=== PATIENT | female | born 2000 | race African-American/Black ===

== ENCOUNTER 2020-01-27 07:54 | Emergency (ER) | payer OTHER, MEDICAID, SELFPAY ==
--- NOTE | ~2020-01-27 | XR_ITS ---
XR wrist LT min 3V 01/27/2020 08:34 INDICATION: Left wrist pain PROCEDURE: 4 views left wrist COMPARISON: No prior studies for comparison. FINDINGS: Fracture, dislocation or subluxation is not identified. The soft tissues appear within norm al limits. No foreign bodies are identified. IMPRESSION: 1: NO ACUTE BONE OR JOINT ABNORMALITY IDENTIFIED. Reviewed, dictated and finalized at location B. ICAL/MOBILE WATCH OFFICER
[2020-01-27 07:54] VITALS: BP 123/75; PULSE 70; RESP 16; TEMP 37.1; O2SAT 100
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
[2020-01-27] MEDS: IBUPROFEN 600 MG TABLET PO (08:50)
[2020-01-27 09:55] VITALS: BP 130/70; PULSE 70; RESP 16; O2SAT 99
== END 2020-01-27 09:55 | disposition home or self-care (01) ==
PROVIDERS: Emergency Provider Emergency Medicine; Referring Provider Family Medicine
DX: S60.212A Contusion of left wrist, initial encounter (principal); V43.52XA Car driver injured in collision with other type car in traffic accident, initial encounter
CPT/HCPCS: 73110; 99283; A9270

== ENCOUNTER 2024-03-17 14:54 | Outpatient (CLI) | payer OTHER, SELFPAY ==
--- NOTE | ~2024-03-17 | US_ITS ---
EXAMINATION: US pelvic complete w TV DATE: 03/17/2024 15:43 INDICATION: Excessive and frequent menstruation. Pelvic pain. Heavy bleeding. Comparison:No prior studies for comparison. TECHNIQUE: Multiple transabdominal and endovaginal sonographic images of the pelvis performed. FINDINGS: The uterus measures 8.4 x 3.9 x 5 cm. The endometrial complex measures 2 cm. Endometrium is thickened and heterogeneous The right ovary measures 3.8 x 2.3 x 3.6 cm and the left ovary measures 3.3 x 2.4 x 2.9 cm. There ar e small follicles in each ovary. Normal doppler signal in both ovaries. There is free fluid in the pelvis. There are no abnormal masses seen on either side. IMPRESSION: 1. Thickened endometrium measuring 2 cm. Reviewed, dictated and finalized at location B.
== END 2024-03-17 14:55 ==
DX: N92.0 Excessive and frequent menstruation with regular cycle (principal); R93.89 Abnormal findings on diagnostic imaging of other specified body structures
CPT/HCPCS: 76830; 76856

== ENCOUNTER 2024-03-29 10:30 | Emergency (ER) | payer OTHER, SELFPAY ==
--- NOTE | ~2024-03-29 | CT_ITS ---
EXAMINATION: CT abdomen pelvis w con DATE: 03/29/2024 12:36 INDICATION: Generalized abdominal pain. TECHNIQUE: Computed tomography (CT) of the abdomen and pelvis was performed with 100 mL Omnipaque 350 intravenous contrast. Automated exposure control and iterative reconstruction technique were employe d. The dose-length product was 415.39 mGy-cm. COMPARISON: None. FINDINGS: The visualized portions of the lung bases are clear without pneumonia or pleural effusion. The heart size is normal. No pericardial effusion. There is a 6 mm cyst in the liver. There is a gall stone in the gallbladder which is normal in size. The spleen, pancreas, adrenal glands, and kidneys a re normal. The appendix is normal. There is wall thickening of the splenic flexure of the colon. Ther e are no dilated loops of bowel. There is physiologic fluid in the pelvis. There are no pathologicall y enlarged lymph nodes. There is mild lumbar spondylosis. IMPRESSION: 1. Wall thickening of the splenic flexure of the colon, consistent with colitis. Reviewed, dictated and finalized at location A. IMPRESSION: 1. Wall thickening of the splenic flexure of the colon, consistent with colitis .
[2024-03-29 10:39] VITALS: BP 109/61; PULSE 80; RESP 29; TEMP 36.8; O2SAT 100
--- NOTE | 2024-03-29 10:43 | ED.GENADULT ---
HPI - General Adult General Chief complaint: Nausea/Vomiting/Diarrhea Stated complaint: n/v Time Seen by Provider: 03/29/24 10:34 History of Present Illness HPI narrative: 23-year-old female presenting to the emergency department for evaluation of nausea vomiting and diarrhea. Patient had similar symptoms yesterday and was seen at [facility]. Patient was treated with IV fluids and medications for nausea control and did feel improved. Patient was discharged home with Zofran but had onset of nausea and vomiting and states she was unable to go to the pharmacy to fill her prescription. Patient did presents to the emergency department complaining of worsening nausea and vomiting. Patient complains of diffuse abdominal pain. Patient denies any significant past medical history. Related Data Allergies Allergy/AdvReac Type Severity Reaction Status Date / Time No Known Allergies Allergy Verified 03/29/24 10:42 Review of Systems Review of Systems: All systems reviewed & are unremarkable except as noted in HPI and below Exam Narrative: APPEARANCE: Well appearing, no pain, no distress, well-nourished. HEAD: normocephalic, atraumatic. EYES: PERRLA/EOMI, conjunctivae clear. NOSE: Normal no drainage EARS:TMS clear with good light reflex. THROAT: Pharynx clear, no exudate. NECK: Supple. No adenopathy, no masses. RESPIRATORY: Airway patent, respirations nonlabored. Clear to auscultation bilaterally, no rales, rhonchi, wheezing. CARDIOVASCULAR: Regular rate and rhythm without murmurs rubs or gallops. ABDOMINAL: Nondistended, normal bowel sounds, diffuse abdominal tenderness MUSCULOSKELETAL: Moves all extremities. Strength/ROM intact, No edema, No calf tenderness. NEURO: Alert. Cranial nerves II through XII intact. Grossly intact Course Vital Signs Vital signs: Vital Signs Temperature 98.2 F 03/29/24 10:39 Pulse Rate 80 03/29/24 10:39 Respiratory Rate 29 H 03/29/24 10:39 Blood Pressure 109/61 03/29/24 10:39 Pulse Oximetry 100 03/29/24 10:39 Oxygen Delivery Room Air 03/29/24 10:39 Temperature 98.2 F 03/29/24 10:39 Pulse Rate 63 03/29/24 12:52 Respiratory Rate 12 03/29/24 12:52 Blood Pressure 129/70 03/29/24 12:52 Pulse Oximetry 100 05/05/24 12:52 Oxygen Delivery Room Air 03/29/24 10:39 Medical Decision Making MDM Narrative Medical decision making narrative: 23 old female presenting to the emergency department for evaluation of recurrent nausea vomiting and diffuse abdominal pain. Patient was treated with IV fluids and IV anti emetics but still complains of persistent abdominal pain. Patient is afebrile but does have a leukocytosis of 16.5. Patient was mildly hypokalemic with a potassium of 3.1. Patient did have elevated lactic acid of 2.7. Patient was treated with 2 L of normal saline. Urine showed ketones but no other significant underlying evidence of infection. On re-evaluation patient does still complain of diffuse abdominal pain. With leukocytosis and elevated lactic acid a CT scan is being ordered to evaluate for colitis and appendicitis. Patient's CT was positive for colitis. Patient does have a prescription for Zofran at home that she has not yet filled. Patient will be prescribed additional Reglan and patient will also be started on Augmentin. Patient was encouraged to have close follow-up with her primary care physician. Differential Diagnosis Differential Diagnosis: Colitis, diverticulitis, gastroenteritis, dehydration, UTI Vital Signs Vital Signs: Vital Signs Temperature 98.2 F 03/29/24 10:39 Pulse Rate 80 03/29/24 10:39 Respiratory Rate 29 H 03/29/24 10:39 Blood Pressure 109/61 03/29/24 10:39 Pulse Oximetry 100 03/29/24 10:39 Oxygen Delivery Room Air 03/29/24 10:39 Temperature 98.2 F 03/29/24 10:39 Pulse Rate 63 03/29/24 12:52 Respiratory Rate 12 03/29/24 12:52 Blood Pressure 129/70 03/29/24 12:52 Pulse Oximetr
[2024-03-29] MEDS: METOCLOPRAMIDE HCL INJ 10 MG/2 ML VIAL IV PUSH (10:52)
[2024-03-29] MEDS: SODIUM CHLORIDE 0.9% IV 1,000 ML 999 ML IV CONT ×2 (10:52→11:20)
[2024-03-29 11:02] LABS: Basophils Absolute Auto 0.1 K/mm3 (0.0-0.1); Basophils Percent Auto 0.3 % (0.2-1.2); Eosinophils Percent Auto 0.1 % (0-4.4); Hematocrit 39.2 % (37.0-47.0); Hemoglobin 13.4 g/dL (12.0-15.0); Immature Granulocyte Percent A 0.6 % (0-0.5); Lymphocytes Absolute Auto 2.33 K/mm3 (0.9-3.2); Lymphocytes Percent Auto 14.1 % (18.3-44.2); Mean Corpuscular HGB Conc 34.2 g/dl (32-36); Mean Corpuscular Hemoglobin 29.8 pg (26-34); Mean Corpuscular Volume 87.1 fl (80-100); Mean Platelet Volume 10.8 fl (7.4-10.4); Neutrophils Percent Auto 78.9 % (45.5-73.1); Platelet Count Result 344 k/mm3 (150-375); Red Cell Distribution Width 13.7 % (11.5-14.5); White Blood Count 16.5 K/mm3 (4.5-10.0)
[2024-03-29 11:12] LABS: Lactic Acid Reflex 2.7 mmol/L (0.7-2.0)
[2024-03-29 11:14] LABS: Alanine Aminotransferase 24 U/L (6-35); Albumin Level 4.6 g/dL (3.5-5.1); Alkaline Phosphatase 78 U/L (38-126); Anion Gap 9 mmol/L (4-12); Aspartate Amino Transferase 37 U/L (14-36); Bilirubin,Total 0.5 mg/dL (0.2-1.3); Blood Urea Nitrogen 10 mg/dL (7-17); Calcium 9.3 mg/dL (8.4-10.2); Carbon Dioxide 21 mmol/L (22-30); Chloride 109 mmol/L (98-107); Estimated CRCL calculation 70 ml/min; Estimated Glomerular Filt Rate > 60; Glucose 105 mg/dL (65-110); Lipase 187 U/L (23-300); Potassium 3.1 mmol/L (3.4-5.0); Sodium 139 mmol/L (137-145)
[2024-03-29 11:31] VITALS: BP 119/73; PULSE 56
[2024-03-29 11:32] VITALS: BP 124/81; PULSE 56
[2024-03-29 11:33] VITALS: BP 127/78; PULSE 78
[2024-03-29 11:49] LABS: Appearance Urine Cloudy (Clear); Bacteria Urine Rare /hpf; Bilirubin Urine Negative (Negative); Blood Urine Negative (Negative); Color Urine Yellow (Yellow); Glucose Urine UA Negative (Negative); Ketones Urine 3+ mg/dL (Negative); Leukocyte Esterase Ur Trace LEU/UL (Negative); Nitrate Urine Negative (Negative); Non Pathogenic Casts 0-2; Protein Urine 1+ mg/dL (Negative); RBC Urine 0-2 /hpf (0-2); Squamous Epithelial Cell Urine Moderate /hpf (Few)
[2024-03-29] MEDS: POTASSIUM CHLORIDE 20 MEQ ER TABLET 40 MEQ PO (11:49)
[2024-03-29 11:52] LABS: Add Urine Microscopic? YES; Specific Grav Ur 1.035 (1.001-1.035)
--- NOTE | 2024-03-29 12:17 | PC.NURSE ---
Pt to CT scan via stretcher at this time.
[2024-03-29 12:52] VITALS: BP 129/70; PULSE 63; RESP 12; O2SAT 100
[2024-03-29 13:59] LABS: Reflex Lactic Acid Yes or No Add Lactic
== END 2024-03-29 13:37 | disposition home or self-care (01) ==
PROVIDERS: Physician Assistant; Emergency Provider Emergency Medicine
DX: K52.9 Noninfective gastroenteritis and colitis, unspecified (principal)
CPT/HCPCS: 36415; 74177; 80053; 81001; 81025; 83605; 83690; 85025; 87086; 96361; 96374; 99284; A9270; J2765; J7030; Q9967

== ENCOUNTER 2024-05-19 07:00 | Outpatient (NON) | payer OTHER, SELFPAY | END 2024-05-19 07:01 | disposition home or self-care (01) | LOC: ANHLAB 05-20 08:39 | PROVIDERS: PCP Midwife; Visit Provider Internal Medicine Gastroenterology | DX: K58.2 Mixed irritable bowel syndrome (principal); K63.5 Polyp of colon | CPT/HCPCS: 88305 ==

== ENCOUNTER 2024-05-19 09:06 | Day surgery (SDC) | payer OTHER, SELFPAY ==
[2024-05-06 09:31] VITALS: BMI 29.5
[2024-05-08 13:29] VITALS: BMI 28.7
--- NOTE | 2024-05-18 07:32 | P.PNAN_ITS ---
Anes - Initial Pre Proc Eval Procedure: Operation Date: 05/19/24 11:30 Proposed Procedures p Esophagogastroduodenoscopy - Jose Clemens MD s Diagnostic Colonoscopy - Jose Clemens MD Date/Time: 05/18/24 07:32 Surgeon: Jose Clemens MD Pre Op Diagnosis: Noninfective gastroenteritis & colitis,unspecified Patient Data Age: 23 Gender: F Height: 1.55 m Weight: 69 kg Allergies Allergy/AdvReac Type Severity Reaction Status Date / Time No Known Allergies Allergy Verified 05/19/24 10:25 Home Medications Medication Instructions Recorded Confirmed Type No Home Medications 05/08/24 05/19/24 History Patient hx anesthesia problems: none Family hx anesthesia problems: none Results Review: All pre-operative results and documents have been reviewed as part of the pre-operative evaluation. [facility] Social History Social History Smoking status: Never smoker Substance use: former Substance use type: marijuana Living arrangements: with family Spiritual care concerns: No Anes - Eval Final PreProcedure Day of Procedure 05/18/24 07:32 Patient weight: overweight Heart: regular rate and rhythm Lungs: clear to auscultation Airway: Mallampati scale class II Neurological: alert and oriented Last oral intake: >/= 8 hours ASA classification: II Emergent: no Anesthetic plan: proceed Anesthesia type and monitoring: general GIVS and standard monitoring Results Review: All pre-operative results and documents have been reviewed as part of the pre- operative evaluation. Informed Consent: The patient's anesthetic plan and its attendant risks and benefits were discussed with the patient/family/POA. Questions were solicited and answers provided to the satisfaction of the patient/family/POA.
--- NOTE | 2024-05-18 20:19 | PM.HPGS ---
History of Present Illness History of Present Illness Consent: Risks, benefits, and alternatives have been discussed and questions answered. Patient agrees to proceed with procedure. Chief complaint: Noninfective gastroenteritis & colitis,unspecified Narrative: Alanis Leon is a 23 year old female who was seen at [facility] ER 03/29/2024 for acute diarrhea, worsening abdominal pain and nausea and vomiting. She is found have an elevated white blood cell count of [address] noted colitis at the splenic flexure. She was discharged with Augmentin. Her acute symptoms have resolved. However, she also complains of chronic GI symptoms since the of her daughter 6 years ago. She does complain chronic upper abdominal pain that comes and goes. She will mostly notice it in the a.m. prior to eating and eating does not improve symptoms. She does state it will radiate into her olive Review of Systems Review of Systems: All systems reviewed & are unremarkable except as noted in HPI and below PMFSH Social History Social History Smoking status: Never smoker Substance use: former Substance use type: marijuana Living arrangements: with family Spiritual care concerns: No Meds Home Medications and Allergies Home Medications Medication Instructions Recorded Confirmed Type No Home Medications 05/08/24 05/19/24 History Allergies Allergy/AdvReac Type Severity Reaction Status Date / Time No Known Allergies Allergy Verified 05/19/24 10:25 Exam Const: General: alert Orientation/consciousness: patient oriented x3 Resp: Auscultation: clear to auscultation bilaterally Cardio: Rhythm: regular rhythm GI: GI Palp: Yes Soft to palpation and No Tenderness to palpation present (GI) Neuro: General: patient oriented x3 Assessment and Plan Assessment and plan (1) Colitis: Code(s): K52.9 - Noninfective gastroenteritis and colitis, unspecified Status: Inactive Assessment and Plan: Colonoscopy with possible biopsy or polypectomy or cautery or injection of substances. (2) Upper abdominal pain: Code(s): R10.10 - Upper abdominal pain, unspecified Status: Acute Assessment and Plan: EGD with possible biopsy or dilatation or cautery.
[2024-05-19 10:30] VITALS: BP 128/68; PULSE 71; RESP 16; TEMP 36.5; O2SAT 100
[2024-05-19] MEDS: LACTATED RINGERS 1,000 ML 150 ML IV CONT (10:35)
[2024-05-19 11:28] VITALS: BP 93/59; PULSE 75; RESP 15; O2SAT 100
[2024-05-19 11:38] VITALS: BP 113/62; PULSE 75; RESP 15; O2SAT 100
[2024-05-19 11:48] VITALS: BP 99/72; PULSE 69; RESP 14; O2SAT 100
--- NOTE | 2024-05-19 13:43 | WPDANESPN ---
Anes - Prog Note Post-Op Date/Time: 05/19/24 13:43 Cardiovascular status: normal Respiratory status: normal Airway patency: baseline Mental status: baseline Post-Op hydration status: normal Vital Signs: Last Vital Signs Temp 36.5 C 05/19/24 10:30 Pulse 69 05/19/24 11:48 Resp 14 05/19/24 11:48 BP 99/72 L 05/19/24 11:48 Pulse Ox 100 05/19/24 11:48 O2 Del Method Room Air 05/19/24 11:48 Pain Score (VAS): 0 I/O: Intake & Output 05/18/24 05/19/24 05/19/24 23:59 07:59 15:59 Intake Total 500 Balance 500 Post-procedural complaints: none Patient Feedback: Patient satisfied with anesthetic care. Other Findings: Patient vital signs back to baseline. Patient denies nausea and vomiting. Patient's pain under control. Patient OK for discharge.
== END 2024-05-19 12:11 | disposition home or self-care (01) ==
PROVIDERS: PCP Midwife; Visit Provider Internal Medicine Gastroenterology
PROC: 0DJ08ZZ Inspection of Upper Intestinal Tract, Via Natural or Artificial Opening Endoscopic (ICD-10-PCS; CPT 43235; principal; 2024-05-19 11:30)
PROC: 0DJD8ZZ Inspection of Lower Intestinal Tract, Via Natural or Artificial Opening Endoscopic (ICD-10-PCS; CPT 45378; 2024-05-19 11:30)
DX: R93.3 Abnormal findings on diagnostic imaging of other parts of digestive tract (principal); D12.4 Benign neoplasm of descending colon; R10.84 Generalized abdominal pain
CPT/HCPCS: 45380; 43239

== ENCOUNTER 2024-07-13 18:55 | Emergency (ER) | payer OTHER, SELFPAY ==
[2024-07-13 19:01] VITALS: BP 117/58; PULSE 65; RESP 15; TEMP 36.6; O2SAT 100
--- NOTE | 2024-07-13 21:29 | ED.GENADULT ---
HPI - General Adult General Chief complaint: Headache Stated complaint: migraine Time Seen by Provider: 07/13/24 21:26 History of Present Illness HPI narrative: Patient is a 23-year-old female who presents emergency department with chief complaint of headache. Patient reports that since Saturday she has been having headache reports that she has photophobia reports that she has nausea. The patient reports this is similar to her previous headaches reports she was normally able to take Tylenol and the headache will subside the patient reports her last menstrual period was May 28 but reports that she has history of irregular periods and does not believe that she is . Related Data Home Medications Medication Instructions Recorded Confirmed No Home Medications 05/08/24 05/19/24 Allergies Allergy/AdvReac Type Severity Reaction Status Date / Time No Known Allergies Allergy Verified 07/13/24 19:04 Review of Systems Review of Systems: A 10 system review of systems was completed on the patient and is negative except for what is stated in the HPI. Nursing and ancillary documentation was reviewed. [facility] Social History Social History Smoking status: Never smoker Substance use: former Substance use type: marijuana Living arrangements: with family Spiritual care concerns: No Exam Narrative: GENERAL: Well-appearing, well-nourished, and in no acute distress. HEAD: Normocephalic, atraumatic. EYES: PERRLA and EOMI. ENT: Nares clear, no rhinorrhea or epistaxis. Mucous membranes moist. NECK: Supple. CHEST: Clear to auscultation. No respiratory distress. HEART: Regular rate and rhythm. No murmur heard. Normal peripheral pulses. ABDOMEN: Soft, nontender, nondistended, normal active bowel sounds. EXTREMITIES: Normal range of motion. No edema. SKIN: Warm, dry, no rash. NEURO: No focal deficits. Alert and oriented x3. PSYCH: Normal mood and affect. Course Vital Signs Vital signs: Vital Signs Temperature 36.6 C 07/13/24 19: Pulse Rate 65 07/13/24 19:01 Respiratory Rate 15 07/13/24 19: Blood Pressure 117/58 L 07/13/24 19: Pulse Oximetry 100 07/13/24 19:01 Oxygen Delivery Room Air 07/13/24 19: Temperature 36.6 C 07/13/24 19:01 Pulse Rate 65 08/19/24 19:01 Respiratory Rate 15 07/13/24 19:01 Blood Pressure 117/58 L 07/13/24 19:01 Pulse Oximetry 100 07/13/24 19:01 Oxygen Delivery Room Air 07/13/24 19:01 Medical Decision Making MDM Narrative Medical decision making narrative: Differential diagnosis includes migraine headache, tension headache, Laboratory studies were obtained on the patient which are currently pending Patient received a migraine cocktail A urine test has been ordered since the patient has not had periods since May 28 Vital Signs Vital Signs: Vital Signs Temperature 36.6 C 07/13/24 19:01 Pulse Rate 65 07/13/24 19:01 Respiratory Rate 15 07/13/24 19:01 Blood Pressure 117/58 L 07/13/24 19:01 Pulse Oximetry 100 07/13/24 19:01 Oxygen Delivery Room Air 07/13/24 19:01 Temperature 36.6 C 07/13/24 19:01 Pulse Rate 65 07/13/24 19:01 Respiratory Rate 15 07/13/24 19:01 Blood Pressure 117/58 L 07/13/24 19:01 Pulse Oximetry 100 07/13/24 19:01 Oxygen Delivery Room Air 07/13/24 19:01 Discharge Plan Discharge Clinical Impression: Migraine Patient Disposition: Home, Self-Care Condition: Stable Instructions: Antibiotic Form, Acute Headache (ED), Migraine Headache (ED) Prescriptions: No Action No Home Medications Follow-up/Referrals: Alannah,Betty Álvarez APRN [Primary Care Provider] -
[2024-07-13 22:18] LABS: BEDSIDEPREGUCG Negative
[2024-07-13 22:27] LABS: Add Urine Microscopic? YES; Appearance Urine Clear (Clear); Bacteria Urine Rare /hpf; Bilirubin Urine Negative (Negative); Blood Urine Negative (Negative); Color Urine Yellow (Yellow); Glucose Urine UA Negative (Negative); Ketones Urine 4+ mg/dL (Negative); Leukocyte Esterase Ur Trace LEU/UL (Negative); Nitrate Urine Negative (Negative); Non Pathogenic Casts 0-2; Protein Urine 1+ mg/dL (Negative); RBC Urine 0-2 /hpf (0-2); Specific Grav Ur 1.031 (1.001-1.035); Squamous Epithelial Cell Urine Occasional /hpf (Few); WBC Urine 0-5 /hpf (0-3)
[2024-07-13 22:40] LABS: Basophils Absolute Auto 0.1 K/mm3 (0.0-0.1); Basophils Percent Auto 0.5 % (0.2-1.2); Eosinophils Absolute Auto 0.1 K/mm3 (0-0.3); Eosinophils Percent Auto 0.6 % (0-4.4); Hematocrit 40.1 % (37.0-47.0); Hemoglobin 13.3 g/dL (12.0-15.0); Immature Granulocyte Absolute 0.03 K/mm3 (0.00-0.031); Immature Granulocyte Percent A 0.3 % (0-0.5); Lymphocytes Absolute Auto 2.26 K/mm3 (0.9-3.2); Lymphocytes Percent Auto 19.5 % (18.3-44.2); Mean Corpuscular HGB Conc 33.2 g/dl (32-36); Mean Corpuscular Hemoglobin 29.8 pg (26-34); Mean Corpuscular Volume 89.7 fl (80-100); Monocytes Absolute Auto 0.7 K/mm3 (0.1-0.6); Monocytes Percent Auto 5.8 % (2.6-8.5); Neutrophils Absolute Auto 8.5 K/mm3 (1.3-6.7); Neutrophils Percent Auto 73.3 % (45.5-73.1); Platelet Count Result 283 k/mm3 (150-375); Red Blood Count 4.47 M/mm3 (4.2-5.4); Red Cell Distribution Width 13.1 % (11.5-14.5); White Blood Count 11.6 K/mm3 (4.5-10.0)
[2024-07-13 22:49] LABS: Chloride 100 mmol/L (98-107)
[2024-07-13] MEDS: diphenhydrAMINE HCl INJ 50 MG/ML VIAL IV PUSH (23:00)
[2024-07-13] MEDS: SODIUM CHLORIDE 0.9% IV 1,000 ML 999 ML IV CONT (23:00)
[2024-07-13] MEDS: METOCLOPRAMIDE HCL INJ 10 MG/2 ML VIAL IV PUSH (23:00)
[2024-07-13] MEDS: KETOROLAC 15 MG/ML VIAL (*BKC) IV PUSH (23:01)
[2024-07-13 23:03] LABS: Alanine Aminotransferase 17 U/L (6-35); Albumin Level 4.5 g/dL (3.5-5.1); Alkaline Phosphatase 76 U/L (38-126); Anion Gap 9 mmol/L (4-12); Aspartate Amino Transferase 26 U/L (14-36); Bilirubin,Total 0.5 mg/dL (0.2-1.3); Blood Urea Nitrogen 8 mg/dL (7-17); Calcium 9.1 mg/dL (8.4-10.2); Carbon Dioxide 28 mmol/L (22-30); Estimated CRCL calculation 75 ml/min; Estimated Glomerular Filt Rate > 60; Glucose 89 mg/dL (65-110); Potassium 3.9 mmol/L (3.4-5.0); Sodium 137 mmol/L (137-145)
[2024-07-13 23:57] VITALS: BP 110/79; PULSE 64; RESP 16; TEMP 36.5; O2SAT 100
== END 2024-07-13 23:59 | disposition home or self-care (01) ==
PROVIDERS: Emergency Provider Emergency Medicine; PCP Midwife
DX: G43.909 Migraine, unspecified, not intractable, without status migrainosus (principal)
CPT/HCPCS: 36415; 80053; 81001; 81025; 85025; 96361; 96374; 96375; 99284; J1200; J1885; J2765; J7030